=== PATIENT | female | born 1955 | race Two or more races ===

== ENCOUNTER 2017-06-05 09:57 | Inpatient (IN) | payer BC ==
[~2017-06-05] VITALS: Ht 165.1 cm; Wt 83.0 kg
[2017-06-05] VITALS (10 sets, daily range): BP systolic 103–144; BP diastolic 46–79
--- NOTE | 2017-06-05 09:26 | Pre-Procedure Note/Attestation ---
Pre-Procedure Note/Attestation Complete Prior to Procedure Planned Procedure: bilateral Indications for Procedure Pre-Operative Diagnosis: Posterior lumbar decompressive surgeryL5-S1 bilaterally, posterolateral arthrodesis and interspinous fixation at the L5-S1, with use allograft, autograft, and iliac bone marrow aspirate. Attestation I attest that I discussed the nature of the procedure; its benefits; risks and complications; and alternatives (and the risks and benefits of such alternatives ), prior to the procedure, with the patient (or the patient's legal floor representative). I attest that, if there was a reasonable possibility of needing a blood transfusion, the patient (or the patient's legal floor representative) was given the [place] [employer] [facility] standardized written summary, pursuant to the [place] Blood Safety Act ([place] Health and Safety Code # 1645, as amended). I attest that I re-evaluated the patient just prior to the surgery and that there has been no change in the patient's H&P, except as documented below: JOB COPELAND Jun 05, 2017 09:26
[~2017-06-05 09:57] MED LIST: Bacitracin Oint 15gm Tube TOPIC ONE; Pantoprazole Inj IVP ONE; Vancomycin 1 GM in D5W 275 ML IVPB SCH
[2017-06-05] MEDS ORDERED: MULTIVITAMINS1 EAC2 ORAL (10:49)
[2017-06-05] MEDS ORDERED: CALCIUM500 M3 PO (10:49)
[2017-06-05] MEDS ORDERED: VITAMIN B COMP1 EAC2 ORAL (10:49)
[2017-06-05] MEDS ORDERED: VITAMIN A10000 UNIT ORAL (10:49)
[2017-06-05] MEDS ORDERED: FLECTOR1 EACH TP (10:50)
[2017-06-05] MEDS ORDERED: CARISOPRODOL350 MG ORAL (11:21)
[2017-06-05] MEDS ORDERED: Lidocaine 1% MPF 10mg/ml 5ml ONE (11:26)
[2017-06-05] MEDS ORDERED: Midazolam 2mg/2ml Inj ONE (11:26)
[2017-06-05] MEDS ORDERED: fentaNYL 100 mcg/2 mL IV ONE (11:26)
[2017-06-05] MEDS ORDERED: Zemuron 50mg/5ml Inj IV ONE (11:45)
[2017-06-05] MEDS ORDERED: Sterile Water Irrig 1000ml IRRIG ONE (11:45)
[2017-06-05] MEDS ORDERED: Propofol 1,000mg/ 100ml btl IV ONE (11:45)
[2017-06-05] MEDS ORDERED: NS Irrig 1000ml ONE (11:45)
[2017-06-05] MEDS ORDERED: Dexamethasone 4mg/ml vial ONE (12:25)
[2017-06-05] MEDS ORDERED: Morphine Sulfate 10mg/ml Inj ONE (12:53)
[2017-06-05] MEDS ORDERED: Glycopyrrolate 0.2mg/ml 1ml Vial ONE (12:54)
--- NOTE | 2017-06-05 13:05 | Anethesia Preoperative Eval ---
Anesthesia Pre-op PMH/ROS General Date of Evaluation: Jun 05, 2017 Time of Evaluation: 11:32 Anesthesiologist: Rosemary ASA Score: ASA 2 Mallampati Score Class I : Soft palate, uvula, fauces, pillars visible Class II: Soft palate, uvula, fauces visible Class III: Soft palate, base of uvula visible Class IV: Only hard plate visible Mallampati Classification: Class II Surgeon: Josiane Diagnosis: Lumbar radiculopathy Surgical Procedure: L5-S1 laminotomy Anesthesia History: none Family History: no anesthesia problems Allergies: Coded Allergies: PEANUT (Verified Allergy, Severe, SWOLLEN THROAT, SOB, 06/05/17) Medications: see eMAR Past Medical History Cardiovascular: Denies: HTN, CAD, [place], valve dz, arrhythmia, other Pulmonary: Denies: asthma, COPD, JOHN, other Gastrointestinal/Genitourinary: Reports: GERD; Denies: CRI, ESRD, other Neurologic/Psychiatric: Reports: depression/anxiety, other - chronic pain; Denies: dementia, CVA, TIA Endocrine: Denies: DM, hypothyroidism, steroids, other HEENT: Denies: cataract (L), cataract (R), glaucoma, [place] (L), [place] (R), other Hematology/Immune: Denies: anemia, DVT, bleeding disorder, other Musculoskeletal/Integumentary: Denies: OA, RA, DJD, DDD, edema, other Other: other - overweight PMH Narrative: as above PSxH Narrative: C- section Anesthesia Pre-op Phys. Exam Physician Exam Last Vital Signs Date Time Temp Pulse Resp B/P (MAP) Pulse Ox O2 Delivery O2 Flow Rate FiO2 06/05/17 10:44 97.1 71 18 144/79 100 Room Air 97.1 Constitutional: NAD Neurologic: CN 2-12 intact Cardiovascular: RRR, no M/R/G Respiratory: CTA Gastrointestinal: S/NT/ND Airway Exam Mallampati Score: Class II MO: full Neck: flexible ROM: full Teeth: intact Dentures: no upper, no lower Anesthesia Pre-op A/P Labs see chart Studies Pre-op Studies: EKG - NSR Risk Assessment & Plan Assessment: ASA 2 Plan: GA with ETT PONV prevention neuromonitoring Status Change Before Surgery: No Pre-Antibiotics Drug: Vancomycin 1gr. Given Within 1 Hr of Incision: Yes Time Given: 12:40 JANES LALA M.D. Jun 05, 2017 13:05
[2017-06-05] MEDS ORDERED: LR 1000ml 1,000 ML IVLG SCH (13:06)
[2017-06-05] MEDS ORDERED: Sodium Chloride 10ml vial INJ ONE (13:09)
[2017-06-05] MEDS ORDERED: Ketorolac 30mg Inj ONE (13:12)
[2017-06-05] MEDS ORDERED: Meperidine 50mg/ml Inj(FOR RIGORS ONLY) IV PRN (13:15)
[2017-06-05] MEDS ORDERED: DiphenhydrAMINE 50mg/ml Inj IVP PRN (13:15)
[2017-06-05] MEDS ORDERED: Ketorolac 30mg Inj IV PRN (13:15)
[2017-06-05] MEDS ORDERED: Midazolam 2mg/2ml Inj IVP PRN (13:15)
[2017-06-05] MEDS ORDERED: Acetaminophen (Non formulary) 100 ML IV ONE (14:00)
--- NOTE | 2017-06-05 14:34 | Immediate Post-Op Evaluation ---
Immediate Post-Op Evalulation Immediate Post-Op Evalulation Procedure: L5-S1 laminotomy with decompression and interbody fusion Date of Evaluation: Jun 05, 2017 Time of Evaluation: 14:33 IV Fluids: 1100 Blood Products: none Estimated Blood Loss: 50 Urinary Output: 150 Blood Pressure Systolic: 106 Blood Pressure Diastolic: 47 Pulse Rate: 80 Respiratory Rate: 20 O2 Sat by Pulse Oximetry: 99 Temperature (Fahrenheit): 97.8 Pain Score (1-10): 2 Nausea: No Vomiting: No Complications NONE Patient Status: awake, patent, extubated, none Hydration Status: adequate JANES LALA M.D. Jun 05, 2017 14:34
--- NOTE | 2017-06-05 14:44 | Brief Operative Note ---
Immediate Post Operative Note Operative Note Chief Complaint: Intractable low back pain and radiculopathy Pre-op Diagnosis: Posterior lumbar decompressive surgeryL5-S1 bilaterally, posterolateral arthrodesis and interspinous fixation at the L5-S1, with use allograft, autograft, and iliac bone marrow aspirate. Procedure: Bilateral L5 hemilaminotomies, medial facetectomies, foraminotomies. Bilateral L5-S1 disc annuloplasties. Bilateral L5-S1 posterolateral arthrodesis. Right iliac crest bone aspiration for grafting Interspinous fusion with biomechanical cage 14-mm titanum Lanx system Application of the epidural fat graft. Microdissection using intra-operative microscope Leroy local bone from lamina for fusion Plastic surgical closure of a 8-cm lumbar wound Supervision use and interpretation of intra-operative fluoroscopy for localization of spine. Post-op Diagnosis: same as pre-op Findings: consistent w/pre-op dx studies Surgeon: Darlene Joshua [employer] Supervisor: Gerry Lundberg Anesthesiologist: Sheldon Anesthesia: general Specimen: none Complications: none Condition: stable Fluids: 500 Estimated Blood Loss: minimal Drains: none Implant(s) used?: Yes - Lanx interspinous DARLENE JOSHUA Jun 05, 2017 14:44
[2017-06-05] MEDS ORDERED: Cyclobenzaprine 10mg Tab ORAL PRN (15:00)
--- NOTE | 2017-06-05 15:14 | General Progress Note ---
Progress Note Progress Note Neurosurgery Post-op S/ No incisional pain. No leg pain. Feels well O/ Last 24 Hour Vital Signs Date Time Temp Pulse Resp B/P (MAP) Pulse Ox O2 Delivery O2 Flow Rate FiO2 06/05/17 15:09 97.9 06/05/17 14:45 77 16 121/55 100 Nasal Cannula 3.0 06/05/17 14:35 79 18 104/50 100 Simple Mask 6.0 06/05/17 14:34 208.0 80 20 99 06/05/17 14:30 79 19 106/47 100 Simple Mask 6.0 06/05/17 14:25 97.9 82 24 103/46 100 Simple Mask 6.0 97.9 06/05/17 10:44 97.1 71 18 144/79 100 Room Air 97.1 Alert and oriented x4 Moves all extremities well normal sensation dressing dry Doing well Admit to floor after recovery room Family updated. JOB COPELAND Jun 05, 2017 15:14
--- NOTE | 2017-06-05 15:55 | Diagnostic Imaging Report ---
Indication: Pain, intraoperative Technique: Intraoperative images Comparison: none Findings: Intraoperative images demonstrate initially a surgical tool posterior to what is presumably the L5-S1 disc. Subsequent images demonstrate a prosthesis between the L5 and S1 spinous processes Impression: Intraoperative imaging, as described
[2017-06-05] MEDS ORDERED: traMADol 50mg tab ORAL PRN (16:00)
[2017-06-05] MEDS: Docusate Sod/Senna tab ORAL SCH (17:05)
[2017-06-05] MEDS: D5 1/2NS w/KCl 20mEq 1,000 ML IV SCH (17:05)
[2017-06-05] MEDS: Docusate 100mg cap ORAL SCH (17:05)
--- NOTE | 2017-06-05 20:32 | General Progress Note ---
Assessment/Plan Status Narrative s/p complex spine surgery pt ot dvt prophylaxis perioperative antibioti cgiven doing well ambulatin with melter assistant. Subjective Date patient seen: Jun 05, 2017 Time patient seen: 20:30 Constitutional: Reports: no symptoms HEENT: Reports: no symptoms Cardiovascular: Reports: no symptoms Respiratory: Reports: no symptoms Allergies: Coded Allergies: PEANUT (Verified Allergy, Severe, SWOLLEN THROAT, SOB, 06/05/17) Subjective HAS PAIN NO FEVER Objective Last 24 Hour Vital Signs Date Time Temp Pulse Resp B/P (MAP) Pulse Ox O2 Delivery O2 Flow Rate FiO2 06/05/17 15:40 97.4 74 18 114/53 98 Nasal Cannula 3.0 97.4 06/05/17 15:39 98.0 06/05/17 15:25 98.0 71 21 120/61 99 Nasal Cannula 3.0 98.0 06/05/17 15:09 73 13 115/58 99 Nasal Cannula 3.0 06/05/17 15:09 97.9 06/05/17 14:55 76 15 117/58 100 Nasal Cannula 3.0 06/05/17 14:45 77 16 121/55 100 Nasal Cannula 3.0 06/05/17 14:35 79 18 104/50 100 Simple Mask 6.0 06/05/17 14:34 208.0 80 20 99 06/05/17 14:30 79 19 106/47 100 Simple Mask 6.0 06/05/17 14:25 97.9 82 24 103/46 100 Simple Mask 6.0 97.9 06/05/17 10:44 97.1 71 18 144/79 100 Room Air 97.1 Height (Feet): 5 Height (Inches): 5.00 Weight (Pounds): 183 General Appearance: WD/WN Cardiovascular: normal rate, regular rhythm, no JVD Respiratory/Chest: lungs clear Abdomen: soft ADAM KILLIAN Jun 05, 2017 20:32
--- NOTE | 2017-06-05 22:15 | Operative Note - Dictated ---
DATE OF OPERATION: 06/05/2017 PREOPERATIVE DIAGNOSES: 1. Intractable mechanical back pain and radiculopathy. 2. Lack of improvement from conservative measures including interventional pain injection and medical therapy. 3. Disk height loss of posterior disk protrusion, Modic changes at the L5-S1 level with bilateral foraminal stenosis. POSTOPERATIVE DIAGNOSES: 1. Intractable mechanical back pain and radiculopathy. 2. Lack of improvement from conservative measures including interventional pain injection and medical therapy. 3. Disk height loss of posterior disk protrusion, Modic changes at the L5-S1 level with bilateral foraminal stenosis. PROCEDURE: 1. Bilateral L5 hemilaminotomy, medial facetectomy and foraminotomy. 2. Bilateral L5-S1 disc annuloplasty. 3. Interspinous fusion arthrodesis using biomechanical cage 14 mm titanium, LINX system. 4. Bilateral posterolateral arthrodesis, L5-S1 level using autologous bone graft, allograft and iliac crest bone marrow aspirate. 5. Intraoperative use, interpretation and supervision of fluoroscopy for localization of spine. 6. Intraoperative microdissection using operative microscope. 7. Intraoperative neuromonitoring using dermatomal and electromyography for the lower extremities and upper extremities. 8. Plastic surgical closure of 8 cm lumbar wound. 9. Iliac crest bone marrow aspirate from the right iliac crest using the Jamshidi needle and processing using the Forman system. 10. Application of epidural fat graft at L5-S1 bilaterally. 11. Modifier 22 for the complexity of the case. SURGEON: Darlene Joshua M.D. SENIOR COURTROOM CLERK SURGEON: Gerry Lundberg D.O. ANESTHESIOLOGIST: Joesph Riley M.D. ANESTHESIA TYPE: General endotracheal anesthesia. EBL: Minimal. IV FLUIDS: 500 mL. URINE OUTPUT: 100 mL. INDICATION: The patient is a pleasant 61-year-old woman with posttraumatic mechanical axial back pain and radiculopathy. The patient has undergone a number of conservative measures, medical therapy, and interventional pain injection without improvement. MRI and a CAT scan of the lumbar spine were obtained. There were evidence of Modic changes in the L5-S1 level, disc height loss, and bilateral foraminal stenosis. Risk of the operation including, but not limited risk of infection, bleeding, nerve damage, pseudoarthrosis/nonunion requiring revision surgery, spinal fluid leakage, requiring revision surgery, adjacent segment disease, require additional treatments after the surgery including physical therapy, interventional pain injections, medical therapy and potential extension of the surgery to the next level were all discussed with her in detail. She voiced understanding of these risks and signed a consent to proceed. DETAILS OF PROCEDURE: The patient was taken to the operating room. She was identified. She underwent uneventful endotracheal intubation. The neuromonitoring leads were attached. Henao catheter was inserted. The patient was then placed prone on a Chano frame. Care was taken to pad all pressure points. Back was pre-prepped. Radiopaque skin markers were attached to the lumbar region and fluoroscopic images were obtained to localize the lumbar spine. Back was then prepped and draped in sterile fashion. Time-out was observed and the circulating nurse called the time-out. Microscope was brought to the field. The entire case was done under microscopic magnification. The incision site was infiltrated using Marcaine and epinephrine. Using a #10 blade, incision was made in the midline. Dissection was carried down to the level of the L5 israel-lamina bilaterally. Intraoperative fluoroscopic images were obtained to verify the correct level. Using high-speed drill, bilateral L5 hemilaminotomies were performed. Care was taken to preserve the integrity of the spinous process and laminar junction. Modifier 22 will be used to denote the difficulty of the exposure and the depth of the surgical corridor and added complexity of the case due to the patient's anatomy. Bone was harvested using Lukens trap systemand saved for grafting. Dissection was carried out laterally over theL5-S1 facet capsules bilaterally. The capsule was removed. The facet joint was decorticated laterally using high-speed drill for future grafting. The ligamentum flavum was identified. The superficial layer of ligamentum flavum was removed using combination of curette and pituitary rongeur. The trailing edge of the S1 was drilled and thinned out. Using Kerrison punches, foraminotomy for the exiting L5 and traversing S1 roots were performed. Central decompression ligamentectomy was performed, which provided central decompression. The interspinous ligament was kept intact throughout the case. The soft tissues immediately inferior to the interspinous ligament were removed and the spinous processes of L5 and S1 were debrided from soft tissue using a rasp and pituitary rongeur. A 14 mm cage was then sized, filled with autologous bone graft, allograft and iliac crest bone marrow aspirate processed concentrate. A 30 mL of bone marrow was removed using a Jamshidi needle from the right iliac crest using 10 mL syringes. The bone marrow aspirate was then processed using harvest system and 3 mL was returned to the field, which was then mixed with autologous bone graft and [place]. The mixture was used to perform the posterolateral arthrodesis bilaterally and also the bone from the lamina for filling the biomechanical cage for interspinous fusion. The interspinous device was then inserted through a barrel guide. The barrel guide was removed. The vertical plates were placed and appropriate clamp force was performed to interdigitate the vertical plates with the spinous processes at the L5 and S1 respectively. Intraoperative fluoroscopy was performed to verify the correct positioning of the device. The screw was torqued and the vertical plates were locked in place. The construct was tested and was found and no abnormal movement was observed. The wound was irrigated with copious amount of antibiotic irrigation. Epidural fat graft was placed over the laminotomy defects bilaterally, which provides excellent coverage for the epidural exposure. Wound was closed in multiple layers in plastic surgical technique using 0's, 2-0's and 3-0 Vicryl stitches. The subcuticular layer was closed also with 3-0 Vicryl stitches in intraoperative fashion. The skin was dressed with Steri-Strips and a sterile dressing was applied as well. The patient was extubated at the end of the case moving all extremities. Complications none. Darlene Joshua M.D. DR: MARCIAL JOB#: [id number] CC: JUANI
[2017-06-06] VITALS: BP 114/72
[2017-06-06] MEDS: Vancomycin 1 GM in D5W 275 ML IVPB SCH ×2 (00:20→12:35)
[2017-06-06 04:00] VITALS: BP 113/66
[2017-06-06] MEDS: D5 1/2NS w/KCl 20mEq 1,000 ML IV SCH ×2 (04:13→13:00)
[2017-06-06 06:42] LABS: ANION GAP 5 mmol/L (5-15); BLOOD UREA NITROGEN 9 mg/dL (7-18); CALCIUM 8.3 MG/DL (8.5-10.1); CARBON DIOXIDE 26 MMOL/L (21-32); CHLORIDE 106 MMOL/L (98-107); CREATININE 0.7 MG/DL (0.55-1.30); POTASSIUM 3.8 MMOL/L (3.5-5.1); SODIUM 136 MMOL/L (136-145)
[2017-06-06 08:00] VITALS: BP 113/79
[2017-06-06] MEDS: Docusate 100mg cap ORAL SCH ×2 (08:19→17:46)
[2017-06-06] MEDS: Docusate Sod/Senna tab ORAL SCH ×2 (08:19→17:46)
--- NOTE | 2017-06-06 08:25 | 48 Hour Post Anesthesia Eval ---
Post Anesthesia Evaluation Procedure: L5-S1 laminotomy with decompression and interbody fusion Date of Evaluation: Jun 06, 2017 Time of Evaluation: 08:23 Blood Pressure Systolic: 112 0: 72 Respiratory Rate: 20 Temperature (Fahrenheit): 97.6 O2 Sat by Pulse Oximetry: 98 Airway: patent Nausea: No Vomiting: No Pain Intensity: 2 Hydration Status: adequate Cardiopulmonary Status: stable Mental Status/LOC: patient returned to baseline Follow-up Care/Observations: n/a Post-Anesthesia Complications: none Follow-up care needed: N/A JANES LALA M.D. Jun 06, 2017 08:25
--- NOTE | 2017-06-06 09:03 | General Progress Note ---
Assessment/Plan Status Narrative s/p complex spine surgery perioperative antibioti cprophyalxis given PT OT dvt prophyalxis paincontrol doing well Subjective Date patient seen: Jun 06, 2017 Time patient seen: 09:02 Constitutional: Reports: no symptoms Cardiovascular: Reports: no symptoms Allergies: Coded Allergies: PEANUT (Verified Allergy, Severe, SWOLLEN THROAT, SOB, 06/05/17) Subjective HAS PAIN NO FEVER Objective Last 24 Hour Vital Signs Date Time Temp Pulse Resp B/P (MAP) Pulse Ox O2 Delivery O2 Flow Rate FiO2 06/06/17 08:25 207.7 20 98 06/06/17 08:00 97.6 70 17 113/79 97 97.6 06/06/17 04:00 97.4 83 20 113/66 98 Room Air 97.4 06/06/17 00:00 98.0 82 17 114/72 96 Room Air 98.0 06/05/17 20:00 97.4 71 17 118/68 97 Room Air 97.4 06/05/17 15:40 97.4 74 18 114/53 98 Nasal Cannula 3.0 97.4 06/05/17 15:39 98.0 06/05/17 15:25 98.0 71 21 120/61 99 Nasal Cannula 3.0 98.0 06/05/17 15:09 73 13 115/58 99 Nasal Cannula 3.0 06/05/17 15:09 97.9 06/05/17 14:55 76 15 117/58 100 Nasal Cannula 3.0 06/05/17 14:45 77 16 121/55 100 Nasal Cannula 3.0 06/05/17 14:35 79 18 104/50 100 Simple Mask 6.0 06/05/17 14:34 208.0 80 20 99 06/05/17 14:30 79 19 106/47 100 Simple Mask 6.0 06/05/17 14:25 97.9 82 24 103/46 100 Simple Mask 6.0 97.9 06/05/17 10:44 97.1 71 18 144/79 100 Room Air 97.1 Intake and Output 06/05/17 06/06/17 18:59 06:59 Intake Total 2100 ml 1525.0 ml Output Total 200 ml Balance 1900 ml 1525.0 ml Intake Oral 300 ml IV Total 2100 ml 1225.0 ml Output Urine Total 150 ml Estimated Blood Loss 50 ml # Voids 1 1 Laboratory Tests 06/06/17 05:25: Sodium Level 136, Potassium Level 3.8, Chloride Level 106, Carbon Dioxide Level 26, Anion Gap 5, Blood Urea Nitrogen 9, Creatinine 0.7, Estimat Glomerular Filtration Rate > 60, Glucose Level 174H, Calcium Level 8.3L Height (Feet): 5 Height (Inches): 5.00 Weight (Pounds): 183 General Appearance: alert Cardiovascular: normal rate, regular rhythm, no JVD Respiratory/Chest: lungs clear Abdomen: soft ADAM KILLIAN Jun 06, 2017 09:03
[2017-06-06] MEDS ORDERED: Tubing IV Secondary IV ONE (10:15)
[2017-06-06] MEDS: HYDROcodone/Acetamin 7.5/325 tab ORAL PRN ×3 (11:27→21:19)
[2017-06-06 12:00] VITALS: BP 109/61
--- NOTE | 2017-06-06 14:05 | General Progress Note ---
Progress Note Progress Note S/Ambulated, voided, pain under control with meds O/ Vs: Last 24 Hour Vital Signs Date Time Temp Pulse Resp B/P (MAP) Pulse Ox O2 Delivery O2 Flow Rate FiO2 06/06/17 12:00 97.4 72 16 109/61 98 97.4 06/06/17 08:25 207.7 20 98 06/06/17 08:00 97.6 70 17 113/79 97 97.6 06/06/17 04:00 97.4 83 20 113/66 98 Room Air 97.4 06/06/17 00:00 98.0 82 17 114/72 96 Room Air 98.0 06/05/17 20:00 97.4 71 17 118/68 97 Room Air 97.4 06/05/17 15:40 97.4 74 18 114/53 98 Nasal Cannula 3.0 97.4 06/05/17 15:39 98.0 06/05/17 15:25 98.0 71 21 120/61 99 Nasal Cannula 3.0 98.0 06/05/17 15:09 73 13 115/58 99 Nasal Cannula 3.0 06/05/17 15:09 97.9 06/05/17 14:55 76 15 117/58 100 Nasal Cannula 3.0 06/05/17 14:45 77 16 121/55 100 Nasal Cannula 3.0 06/05/17 14:35 79 18 104/50 100 Simple Mask 6.0 06/05/17 14:34 208.0 80 20 99 06/05/17 14:30 79 19 106/47 100 Simple Mask 6.0 06/05/17 14:25 97.9 82 24 103/46 100 Simple Mask 6.0 97.9 Exam: New dressing applied. Incisoon is clean and dry and intact Increase sensation in th elower extremities. Motor 5/5 in the upper and lower extremities muscle groups Imp/plan: doing well ambulate d/c IV Brace and Home DMEs D/c planning D/c instructions reviewed with pt, and her son and nursing staff. JOB COPELAND Jun 06, 2017 14:05
[2017-06-06 16:00] VITALS: BP 109/61
[2017-06-06 20:00] VITALS: BP 117/62
[2017-06-07] VITALS: BP 145/69
--- NOTE | 2017-06-07 02:00 | Discharge Summary ---
DATE OF ADMISSION: 06/05/2017 DATE OF DISCHARGE: 06/07/2017 DISCHARGE DIAGNOSIS: Status post bilateral L5-S1 lumbar decompressive surgery, interspinous fusion, and posterolateral arthrodesis. HISTORY OF PRESENT ILLNESS: Refer to the chart for detailed History and Physical. HOSPITAL COURSE: The patient was admitted on 06/05/2017, underwent uneventful post lumbar decompressive surgery, interspinous fusion, and posterolateral arthrodesis at the L5-S1 level with iliac crest bone marrow aspirate. The patient has done well postoperatively. She has experienced improved sensation in her lower extremities. She is ambulating. Her pain is under control. She has been discharged home with appropriate discharge instructions. DISCHARGE MEDICATIONS: Include hydrocodone and Flexeril. Appropriate usage instructions were given to patient and her son. DISPOSITION: Home. DIET: Regular. CONDITION: Stable. The patient is asked to avoid bending, lifting, or twisting. She is prescribed lumbar brace and additional DMEs as deemed necessary with the eap consultant physical therapist. CONSULTATION: Included physical therapy and Internal Medicine. COMPLICATIONS: None. Darlene Joshua M.D. DR: Erin JOB#: [id number] CC:
[2017-06-07 04:00] VITALS: BP 112/61
[2017-06-07 08:00] VITALS: BP 115/70
[2017-06-07] MEDS: Docusate 100mg cap ORAL SCH ×2 (08:55→17:40)
[2017-06-07] MEDS: Docusate Sod/Senna tab ORAL SCH ×2 (08:55→17:40)
[2017-06-07] MEDS: HYDROcodone/Acetamin 7.5/325 tab ORAL PRN ×4 (08:56→23:10)
[2017-06-07] MEDS ORDERED: Milk of Magnesia 30ml Ud ORAL PRN (11:15)
[2017-06-07] MEDS: Milk of Magnesia 30ml Ud ORAL PRN ×3 (11:32→23:03)
[2017-06-07 12:00] VITALS: BP 116/65
[2017-06-07 16:00] VITALS: BP 120/64
--- NOTE | 2017-06-07 17:42 | General Progress Note ---
Assessment/Plan Status Narrative s/p complex spine syurgery doing well pt ot dvt prophyalxis dc home in am. Subjective Date patient seen: Jun 07, 2017 Time patient seen: 17:41 Constitutional: Reports: no symptoms HEENT: Reports: no symptoms Cardiovascular: Reports: no symptoms Allergies: Coded Allergies: PEANUT (Verified Allergy, Severe, SWOLLEN THROAT, SOB, 06/05/17) Subjective HAS PAIN NO FEVER Objective Last 24 Hour Vital Signs Date Time Temp Pulse Resp B/P (MAP) Pulse Ox O2 Delivery O2 Flow Rate FiO2 06/07/17 16:00 98.2 70 19 120/64 95 Room Air 98.2 06/07/17 12:00 98.2 62 19 116/65 95 Room Air 98.2 06/07/17 08:00 98.1 78 19 115/70 95 Room Air 98.1 06/07/17 04:00 98.8 65 17 112/61 98 Room Air 98.8 06/07/17 00:00 98.8 88 18 145/69 97 Room Air 98.8 06/06/17 20:00 97.9 75 17 117/62 100 Room Air 97.9 Intake and Output 06/06/17 06/07/17 19:00 07:00 Intake Total 1766.6 ml 480 ml Balance 1766.6 ml 480 ml Intake Oral 900 ml 480 ml IV Total 866.6 ml # Voids 2 1 Height (Feet): 5 Height (Inches): 5.00 Weight (Pounds): 183 General Appearance: WD/WN Cardiovascular: regular rhythm, no JVD Respiratory/Chest: lungs clear Abdomen: soft ADAM KILLIAN Jun 07, 2017 17:42
[2017-06-07 19:38] VITALS: BP 110/61
[2017-06-08] VITALS: BP 117/59
[2017-06-08] MEDS: HYDROcodone/Acetamin 7.5/325 tab ORAL PRN ×3 (02:21→14:32)
[2017-06-08] MEDS ORDERED: HYDROCODON-ACE1 EA15 ORAL (06:56)
[2017-06-08] MEDS ORDERED: NORCO 10-325 T1 EACH ORAL ×2 (06:57→07:56)
[2017-06-08] MEDS ORDERED: CYCLOBENZAPRIN7.5 MG ORAL (07:58)
[2017-06-08 08:00] VITALS: BP 122/70
[2017-06-08] MEDS: Docusate Sod/Senna tab ORAL SCH (08:03)
[2017-06-08] MEDS: Docusate 100mg cap ORAL SCH (08:03)
[2017-06-08 12:00] VITALS: BP 109/58
== END 2017-06-08 15:30 | disposition home or self-care (01) | DRG 460 ==
LOC: SDSOVERFLO 09:57 → EDBD 10:00 → 3E 15:30
PROC: 0SG30AJ Fusion of Lumbosacral Joint with Interbody Fusion Device, Posterior Approach, Anterior Column, Open Approach (ICD-10-PCS; principal; 2017-06-05 11:00)
PROC: 0SB40ZZ Excision of Lumbosacral Disc, Open Approach (ICD-10-PCS; principal; 2017-06-05 11:00)
PROC: 07DR3ZZ Extraction of Iliac Bone Marrow, Percutaneous Approach (ICD-10-PCS; principal; 2017-06-05 11:00)
PROC: 01NB0ZZ Release Lumbar Nerve, Open Approach (ICD-10-PCS; principal; 2017-06-05 11:00)
DX: M51.16 Intervertebral disc disorders with radiculopathy, lumbar region (principal); M51.17 Intervertebral disc disorders with radiculopathy, lumbosacral region; M48.07 Spinal stenosis, lumbosacral region; K21.9 Gastro-esophageal reflux disease without esophagitis; F41.8 Other specified anxiety disorders
CPT/HCPCS: 36415; 72020; 76001; 80048; 86850; 86900; 86901; 87081; C9399; J2250; J2405